=== PATIENT | male | born 1975 | race Caucasian/White ===

== ENCOUNTER 2019-01-07 23:20 | Emergency (ER) | payer MEDICAID ==
[2019-01-07] MEDS ORDERED: Acetaminophen/oxyCODONE 325-5 MG Tab PO ONE (23:28)
--- NOTE | 2019-01-07 23:32 | EDM.PDOC ---
ED HPI GENERAL MEDICAL PROBLEM - General Chief Complaint: Laceration Stated Complaint: SMASHED FINGER Time Seen by Provider: 01/07/19 23:32 Source of Information: Reports: Patient History Limitations: Reports: No Limitations - History of Present Illness INITIAL COMMENTS - FREE TEXT/NARRATIVE: at noon today he got his small finger caught between the door jam and a stove that he was taking upstairs. He was able to move it so he did not come in until now. Onset: Today, Sudden Duration: Hour(s): Location: Reports: Upper Extremity, Right Associated Symptoms: Reports: No Other Symptoms, Other ( Pt was not current with his tetanus. ) Hand Pain Score (Numeric/FACES): 2 - Related Data Allergies Allergy/AdvReac Type Severity Reaction Status Date / Time No Known Allergies Allergy Verified 09/12/17 11:38 Home Meds: Home Meds Cetirizine [ZyrTEC] 10 mg PO DAILY 09/12/17 [History] Diclofenac Sodium [IJD: Diclofenac Sodium] 1 tab PO BID 09/12/17 [History] Fluticasone Propionate [Flonase] 2 sprays NASBOTH DAILY 09/12/17 [History] Methocarbamol [Robaxin-750] 1 - 2 tab PO QID PRN 09/12/17 [History] Triamcinolone Acetonide [Triamcinolone Acetonide 0.1% Crm] 1 strip TOP TID 09/12 [History] Past Medical History Musculoskeletal History: Reports: Other (See Below) Other Musculoskeletal History: left knee pain Social & Family History - Tobacco Use Smoking Status *Q: Never Smoker - Caffeine Use Caffeine Use: Reports: Coffee, Soda - Recreational Drug Use Recreational Drug Use: No ED ROS GENERAL - Review of Systems Review Of Systems: See Below Constitutional: Reports: No Symptoms HEENT: Reports: No Symptoms Respiratory: Reports: No Symptoms Cardiovascular: Reports: No Symptoms Endocrine: Reports: No Symptoms GI/Abdominal: Reports: No Symptoms : Reports: No Symptoms Musculoskeletal: Reports: Other ( Pt has a crushing injury to the 5th rt finger. ) ED EXAM, SKIN/RASH Exam: See Below Text/Narrative:: pt had a smashing injury to the tip of his rt 5th finger. It was caught between a door jam and a stove he was carrying. Exam Limited By: No Limitations General Appearance: Alert, Moderate Distress Extremities: Other ( the small rt finger was jammed. The finger nail is loose. He has a 1/4 inch laceration on the outside of the finger. He has normal sensation in the finger and he has normal motion. ) Course - Vital Signs Last Recorded V/S: Last Vital Signs Temp 36.8 C 01/07/19 23:29 Pulse 81 01/07/19 23:29 Resp 16 01/07/19 23:29 BP 149/105 H 01/07/19 23:29 Pulse Ox 98 01/07/19 23:29 - Orders/Labs/Meds Orders: Active Orders 24 hr Category Date Time Status Vaccines to be Administered [RC] PER UNIT ROUTINE Care 01/07/19 23:36 Active Meds: Medications Discontinued Medications Generic Name Dose Route Start Last Admin Trade Name Freq PRN Reason Stop Dose Admin Bacitracin 1 dose 01/07/19 23:54 01/07/19 23:57 Bacitracin Oint 1 Gm TOP 01/07/19 23:55 1 dose ONETIME ONE Administration Diphtheria/Tetanus/Acell Pertussis 0.5 ml 01/07/19 23:35 01/07/19 23:57 Adacel IM 01/07/19 23:36 0.5 ml .ONCE ONE Administration Lidocaine HCl 20 ml 01/07/19 23:54 01/07/19 23:57 Xylocaine 1% INJECT 01/07/19 23:55 20 ml ONETIME ONE Administration Ondansetron HCl 4 mg 01/07/19 23:33 01/07/19 23:38 Zofran Odt PO 01/07/19 23:34 4 mg ONETIME ONE Administration Oxycodone/Acetaminophen 1 tab 01/07/19 23:28 01/07/19 23:37 Percocet 325-5 Mg PO 01/07/19 23:29 1 tab ONETIME ONE Administration - Re-Assessments/Exams Free Text/Narrative Re-Assessment/Exam: 01/08/19 00:15 xrays did not reveal any sig fractures. Pt was not current with his tetanus so a dtap was given to the pt. The wound was cleaned well and infiltrated with lidocaine. The base of the nail was tacked dowm. The pt was informed that he would loose his nail, Pt had a superficial laceration on the outside of the finger. That was brought together with 5-0 prolene. he was advised to keep the finger covered and dress daily starting mon. He will have a over the finger splint. He should avoid alot of lifting and pulling. Departure - Departure Time of Disposition: 00:18 Disposition: Home, Self-Care 01 Condition: Fair Clinical Impression: Crush injury to finger, Laceration - Discharge Information Instructions: Crush Injury of the Hand, [id number] Referrals: Ruslan Peña MD [Primary Care Provider] - Forms: ED Department Discharge Care Plan Goals: keep dry, keep covered, reapply bacatracin with each dressing change keflex 500mg tid for 5 days to prevent infection, norco # 6 5/325 q6h prn for pain, motrin 600mg q6h fo less severe pain. The norco should be used with severe pain , elevate and cool pack. - My Orders Last 24 Hours: My Active Orders 01/07/19 23:36 Vaccines to be Administered [RC] PER UNIT ROUTINE - Assessment/Plan Last 24 Hours: My Active Orders 01/07/19 23:36 Vaccines to be Administered [RC] PER UNIT ROUTINE
[2019-01-07] MEDS ORDERED: Ondansetron 4 MG Tab.DIS PO ONE (23:33)
[2019-01-07] MEDS ORDERED: Diphtheria,Pertussis(Acell),Tetanus Vaccine 0.5 ML SDV IM ONE (23:35)
[2019-01-07] MEDS ORDERED: Lidocaine 1% 20 ML MDV INJECT ONE (23:54)
[2019-01-07] MEDS ORDERED: Bacitracin Oint 1 GM U/D Packet TOP ONE (23:54)
--- NOTE | 2019-01-07 23:54 | CRLCR ---
INDICATION: Crush finger injury TECHNIQUE: Finger radiograph 3 views right 5th COMPARISON: None FINDINGS: Bone: No acute fractures or aggressive bone lesions are identified. Joint: The metacarpophalangeal and interphalangeal joints are normal in appearance. Soft tissue: There are tiny punctate densities over the nailbed which may represent a nail integration or small foreign bodies. Soft tissue injury to the nail bed is noted. IMPRESSIONS: 1. No acute osseous injuries or abnormalities are noted. 2. There are tiny punctate densities over the nailbed which may represent a nail integration or small foreign bodies. Dictated by Pancho Johansen MD @ 01/07/2019 11:54:11 PM Dictated by: Pancho Johansen MD @ 01/07/2019 23:54:16 (Electronically Signed)
== END 2019-01-08 00:28 | disposition home or self-care (01) ==
LOC: JP.ED 23:20
DX: S67.196A Crushing injury of right little finger, initial encounter (principal); S61.316A Laceration without foreign body of right little finger with damage to nail, initial encounter; Z23 Encounter for immunization; W23.0XXA Caught, crushed, jammed, or pinched between moving objects, initial encounter
CPT/HCPCS: 12001; 73140; 90471; 90715; 99284; A9270